=== PATIENT | female | born 1990 | race American Indian/Alaskan Native ===

== ENCOUNTER 2016-08-20 10:33 | Emergency (ER) | payer MEDICAID ==
[2016-08-20 10:46] VITALS: BP 99/64; PULSE 106; RESP 20; TEMP 98.8; O2SAT 97
--- NOTE | 2016-08-20 11:41 | C.PDOC ---
History Of Present Illness A 25 year old female, with a history of sickle cell disease, recent icu admission for acute chest syndrome and pneumonia, seizures, stroke, asthma presents to the emergency room with complaints of generalized joint pains since yesterday, similar to previous sickle cell crises. Patient taking 4 mg po dilaudid q 3 hours iwth no relief. pt reports temp to 100.6 yesterday, pt sts she had a breakthrough seizure 2 days ago. Patient notes joint pain, musculoskeletal chest pain, and a fever. Patient denies cough, shortness of breath, headaches, dizziness, or abdominal pain. Patient believes stress of school and final exams or recent seizure may have triggered this pain. Time Seen by Provider: 08/20/16 11:20 Chief Complaint (Nursing): Pain, Chronic History Per: Patient History/Exam Limitations: no limitations Onset/Duration Of Symptoms: Days (1) Current Symptoms Are (Timing): Still Present Severity: Moderate Recent travel outside of the [place]: No Past Medical History Reviewed: Historical Data, Nursing Documentation, Vital Signs Vital Signs: Last Vital Signs Temp 98.8 F 08/20/16 10:45 Pulse 106 H 08/20/16 10:45 Resp 20 08/20/16 10:45 BP 99/64 L 08/20/16 10:45 Pulse Ox 97 08/20/16 11:53 - Medical History PMH: Asthma, Seizures, Sickle Cell Disease Family History: States: No Known Family Hx - Social History Hx Alcohol Use: No Hx Substance Use: No - Immunization History Hx Tetanus Toxoid Vaccination: Yes Hx Influenza Vaccination: Yes Hx Pneumococcal Vaccination: Yes Review Of Systems Except As Marked, All Systems Reviewed And Found Negative. Constitutional: Positive for: Fever. Negative for: Chills Cardiovascular: Positive for: Chest Pain (Musculoskeletal pain) Respiratory: Negative for: Cough, Shortness of Breath Musculoskeletal: Positive for: Other (Joint pain. Generalized body pain. ) Neurological: Negative for: Weakness, Numbness, Headache, Dizziness Physical Exam - Physical Exam Appears: Non-toxic, No Acute Distress Skin: Normal Color, Warm, Dry, No Rash Head: Atraumatic, Normacephalic Eye(s): bilateral: Other (Conjunctiva are pink) Neck: Normal ROM Chest: Symmetrical, Tenderness (mild sternal tenderness) Cardiovascular: Other (Tachycardic) Respiratory: Normal Breath Sounds, No Rales, No Rhonchi, No Wheezing Gastrointestinal/Abdominal: Soft, No Tenderness, No Distention, No Guarding, No Rebound Extremity: Normal ROM, No Tenderness, No Pedal Edema, No Calf Tenderness, No Deformity, No Swelling Neurological/Psych: Oriented x3, Normal Speech, Normal Cognition, Normal Motor, Normal Sensation ED Course And Treatment O2 Sat by Pulse Oximetry: 97 Medical Decision Making Medical Decision Making: plan to give patient dilaudid po and draw labs discussed with patient: pt refuses po dilaudid, because she has already taken that at home without relief. discussed with patient that she would receive a po dose consistent with the usual iv dose she receives (4 mg iv). Discussed benefits of staying and receiving medication. Discussed risks of leaving. Patient states that she only want Dilaudid through the port on her chest. Patient is deciding to sign out AMA. Patient left the ER before signing the AMA form, though was asked to stop to sign,. she kept walking to exit. Disposition - Disposition Disposition: AGAINST MEDICAL ADVICE Disposition Time: 11:40 Condition: STABLE - Clinical Impression Clinical Impression: Sickle cell pain crisis
== END 2016-08-20 11:46 | disposition left against medical advice (07) ==
LOC: C.ER 10:33
DX: D57.00 Hb-SS disease with crisis, unspecified (principal)